=== PATIENT | male | born 1960 | race Two or more races ===

== ENCOUNTER 2018-04-17 14:55 | Emergency (ER) | payer OTHER ==
[~2018-04-17] VITALS: Ht 182.9 cm; Wt 136.1 kg
[~2018-04-17 14:55] MED LIST: ACIDOPHILUS1 EAC3 PO; AMOX1TAB12 PO; AZITHROMYCIN500 MG; CIPRO500 MG PO; CLARITIN-D 241 EACH PO; DILTIAZEM ER90 MG; DIOVAN40 MG; GLUCOPHAGE XR500 MG; KEFLEX500 MG PO; NASONEX17 GM TOP; PROVENTIL S1 ML/5 MG; SYNTHROID100 MCG; SYNTHROID50 MCG; TAMS0.4C PO; TRAM1TAB98 PO; ULTRACET PO; URIN D.S. TABLE1 TAB PO; VYTORIN 10-20 M1 TAB
== END 2018-04-17 18:36 ==
LOC: ER 14:55
DX: M54.5 Low back pain (principal)

== ENCOUNTER 2018-09-23 22:55 | Emergency (ER) | payer OTHER ==
[~2018-09-23] VITALS: Ht 182.9 cm; Wt 132.9 kg
[2018-09-24] MEDS ORDERED: KETO10TA2 PO (07:31)
[2018-09-24] MEDS ORDERED: TAMS0.4C PO (07:31)
== END 2018-09-24 08:47 | disposition home or self-care (01) ==
LOC: ER 22:55
DX: N20.0 Calculus of kidney (principal); K57.90 Diverticulosis of intestine, part unspecified, without perforation or abscess without bleeding

== ENCOUNTER 2018-11-16 11:40 | Outpatient (CLI) | payer OTHER ==
[~2018-11-16 11:40] MED LIST changes: +KETO10TA2 PO
== END 2018-11-16 11:53 | disposition home or self-care (01) ==
LOC: RAD 11:40
DX: N40.1 Benign prostatic hyperplasia with lower urinary tract symptoms (principal)

== ENCOUNTER 2021-05-14 10:10 | Emergency (ER) | payer OTHER ==
[~2021-05-14] VITALS: Ht 182.9 cm; Wt 122.5 kg
[2021-05-14] MEDS ORDERED: LEVOTHYROXINE25 MCG PO (10:31)
[2021-05-14] MEDS ORDERED: MONTELUKAST SODI4 M1 PO (10:31)
[2021-05-14] MEDS ORDERED: KETO10TA2 PO (13:28)
== END 2021-05-14 13:44 | disposition home or self-care (01) ==
LOC: ER 10:10
DX: M17.12 Unilateral primary osteoarthritis, left knee (principal); M25.462 Effusion, left knee; M54.50 Low back pain, unspecified

== ENCOUNTER 2021-08-13 10:19 | Outpatient (CLI) | payer OTHER ==
[~2021-08-13 10:19] MED LIST changes: +LEVOTHYROXINE25 MCG PO; +MONTELUKAST SODI4 M1 PO
== END 2021-08-13 10:34 | disposition home or self-care (01) ==
LOC: MRI 10:19
PROVIDERS: ATTEND Orthopaedic Surgery
DX: M25.562 Pain in left knee (principal)
CPT/HCPCS: 73721